=== PATIENT | male | born 1955 | race Caucasian/White ===

== ENCOUNTER 2020-03-06 17:43 | Emergency (ER) | payer OTHER, MEDICAID ==
[~2020-03-06] VITALS: Ht 170.2 cm; Wt 81.6 kg
--- NOTE | 2020-03-06 18:00 | NUR ---
Patient to ER bed 5 to gown for evaluation. Side rails up.
[2020-03-06 18:02] VITALS: BP_SYST 137
[2020-03-06] MEDS ORDERED: NACL 0.9% 1,000 ML IV ONE (18:05)
--- NOTE | 2020-03-06 18:05 | NUR ---
Pt came to ER for L flank pain, difficulty urinating, rates pain 9/10. Pt resting in [facility], no distress at this time, awaiting MD.
[2020-03-06] MEDS ORDERED: KETOROLAC TROMETHAMINE 30 MG VIAL IVP ONE (18:15)
--- NOTE | 2020-03-06 18:15 | NUR ---
ER at bedside examining patient.
[2020-03-06 18:50] LABS: BILIRUBIN,URINE NEGATIVE (NEGATIVE); BLOOD, URINE 1+ (NEGATIVE); COLOR,URINE YELLOW (YELLOW); GLUCOSE,URINE NEGATIVE (NEGATIVE); KETONES,URINE TRACE (NEGATIVE); LEUKOCYTE ESTERASE ,URINE 1+ (NEGATIVE); NITRITE, URINE NEGATIVE (NEGATIVE); PROTEIN URINE 1+ (NEGATIVE)
[2020-03-06 18:53] LABS: BASOPHILS % (AUTO) 0.5 % (0.0-2.0); EOSINOPHILS # (AUTO) 0.1 K/uL (0.0-0.4); EOSINOPHILS % (AUTO) 0.8 % (0.0-4.0); HEMATOCRIT 39.9 % (36-54); HEMOGLOBIN 13.6 g/dL (14.0-18.0); LYMPHOCYTES # (AUTO) 1.1 K/uL (1.0-5.5); LYMPHOCYTES % (AUTO) 10.8 % (20.5-51.5); MEAN CORPUSCULAR HEMOGLOBIN 32 pg (27-31); MEAN CORPUSCULAR HGB CONC 34 % (32-36); MEAN CORPUSCULAR VOLUME 95 fL (79.0-98.0); MONOCYTES % (AUTO) 9.8 % (1.7-9.3); NEUTROPHILS # (AUTO) 7.8 K/uL (1.8-7.7); NEUTROPHILS % (AUTO) 78.1 % (40.0-70.0); PLATELET COUNT (AUTO) 196 K/uL (130-430); RED BLOOD CELL COUNT(AUTO) 4.21 MIL/uL (4.2-6.2); RED CELL DISTRIBUTION WIDTH 13.8 % (9.0-15.0)
[2020-03-06 19:02] LABS: CLARITY/URINE HAZY (CLEAR)
--- NOTE | 2020-03-06 19:13 | NUR ---
REPORT FROM ANA PENA
[2020-03-06 19:21] LABS: BACTERIA,URINE MODERATE /HPF (None Seen)
[2020-03-06] MEDS ORDERED: NEU300 PO (19:21)
[2020-03-06] MEDS ORDERED: SITA100T11 PO (19:21)
[2020-03-06 19:22] LABS: MUCUS,URINE 2+ /LPF (None Seen)
[2020-03-06] MEDS ORDERED: GLIP10TA11 PO (19:23)
[2020-03-06] MEDS ORDERED: CIPR250T4 PO (19:23)
[2020-03-06] MEDS ORDERED: SIMV20TA2 PO (19:23)
--- NOTE | 2020-03-06 19:23 | NUR ---
Medication reconciliation completed with information provided by PATIENT'S BOTTLES. Any prior medication reconciliation on file was reviewed and corrected.
[2020-03-06 19:25] LABS: CALCIUM 8.5 mg/dL (8.4-11.0); CREATININE 0.67 mg/dL (0.55-1.30)
[2020-03-06 19:32] LABS: TOTAL BILIRUBIN 0.4 mg/dL (0.0-1.0)
[2020-03-06] MEDS ORDERED: POTASSIUM CHLORIDE 20 MEQ TAB.PRT.SR PO ONE (20:00)
[2020-03-06 20:33] VITALS: BP_SYST 128
--- NOTE | 2020-03-06 20:33 | NUR ---
Patient given written and verbal discharge instructions and verbalizes understanding. ER MD discussed with patient the results and treatment provided. Patient in stable condition. ID arm band removed. IV catheter removed intact and dressing applied, no active bleeding. Rx of Motrin, Tramadol and Flomax given. Patient educated on pain management and to follow up with PMD. Pain Scale 0/10 Opportunity for questions provided and answered. Medication side effect fact sheet provided.
== END 2020-03-06 20:33 | disposition home or self-care (01) ==
LOC: SED 17:43
DX: N20.0 Calculus of kidney (principal); N39.0 Urinary tract infection, site not specified; R03.0 Elevated blood-pressure reading, without diagnosis of hypertension; E11.40 Type 2 diabetes mellitus with diabetic neuropathy, unspecified; E78.00 Pure hypercholesterolemia, unspecified; Z79.899 Other long term (current) drug therapy
CPT/HCPCS: 36415; 74176; 80053; 81000; 85025; 87086; 96361; 96374; 99284; J1885; J7030

== ENCOUNTER 2020-04-08 18:53 | Inpatient (IN) | payer OTHER, MEDICAID, SELFPAY ==
[~2020-04-08] VITALS: Ht 167.6 cm; Wt 78.0 kg
[~2020-04-08 18:53] MED LIST: CIPR250T4 PO; GLIP10TA11 PO; NEU300 PO; SIMV20TA2 PO; SITA100T11 PO
[2020-04-08 19:15] VITALS: BP_SYST 138
--- NOTE | 2020-04-08 19:19 | NUR ---
Patient to ER bed 5 to gown for evaluation. Side rails up. Report given to Malou PEREZ.
--- NOTE | 2020-04-08 19:30 | NUR ---
ER DR. THOMSON AT THE BEDSIDE EVALUATING PT
--- NOTE | 2020-04-08 19:35 | NUR ---
PT ABLE TO VOID, PROVIDED WITH SPECIMEN CUP. SPECIMEN SENT TO LAB
--- NOTE | 2020-04-08 19:37 | NUR ---
BD PT PRESENTS FROM HOME WITH C/O GROIN PAIN X 1 DAY, DYSURIA AND PAIN WITH URINATION AND RIGHT LOWER BACK PAIN 8/10. PT IS ABLE TO AMBULATE, DENIES ABD PAIN, N/V. AAOX4, V/S STABLE.
[2020-04-08] MEDS ORDERED: KETOROLAC TROMETHAMINE 30 MG VIAL IVP ONE (19:45)
[2020-04-08] MEDS ORDERED: NACL 0.9% 1,000 ML IV ONE (19:45)
--- NOTE | 2020-04-08 19:50 | NUR ---
# 20 gauge angiocath placed to RFA. Use of asceptic technique. Opsite placed over site. Blood return noted. Blood for lab drawn from site. Flushed with 10 cc of normal saline. No evidence of infiltration noted. Patient tolerated well.
[2020-04-08 20:02] LABS: BILIRUBIN,URINE NEGATIVE (NEGATIVE); CLARITY/URINE CLEAR (CLEAR); COLOR,URINE YELLOW (YELLOW); GLUCOSE,URINE NEGATIVE (NEGATIVE); KETONES,URINE NEGATIVE (NEGATIVE); LEUKOCYTE ESTERASE ,URINE 1+ (NEGATIVE); NITRITE, URINE NEGATIVE (NEGATIVE); PROTEIN URINE NEGATIVE (NEGATIVE)
[2020-04-08 20:03] LABS: BASOPHILS # (AUTO) 0.1 K/uL (0.0-0.2); BASOPHILS % (AUTO) 0.4 % (0.0-2.0); EOSINOPHILS # (AUTO) 0.3 K/uL (0.0-0.4); HEMATOCRIT 39.3 % (36-54); HEMOGLOBIN 13.2 g/dL (14.0-18.0); LYMPHOCYTES # (AUTO) 1.7 K/uL (1.0-5.5); LYMPHOCYTES % (AUTO) 12.7 % (20.5-51.5); MEAN CORPUSCULAR HEMOGLOBIN 32 pg (27-31); MEAN CORPUSCULAR HGB CONC 34 % (32-36); MEAN CORPUSCULAR VOLUME 95 fL (79.0-98.0); MONOCYTES # (AUTO) 0.5 K/uL (0.0-1.0); MONOCYTES % (AUTO) 3.5 % (1.7-9.3); NEUTROPHILS # (AUTO) 10.8 K/uL (1.8-7.7); NEUTROPHILS % (AUTO) 81.4 % (40.0-70.0); PLATELET COUNT (AUTO) 218 K/uL (130-430); RED BLOOD CELL COUNT(AUTO) 4.14 MIL/uL (4.2-6.2); RED CELL DISTRIBUTION WIDTH 13.5 % (9.0-15.0); WHITE BLOOD COUNT (AUTO) 13.3 K/uL (4.8-10.8)
[2020-04-08 20:04] LABS: BLOOD, URINE TRACE (NEGATIVE)
[2020-04-08 20:17] LABS: CREATININE 0.66 mg/dL (0.55-1.30); POTASSIUM 3.3 mmol/L (3.5-5.1)
--- NOTE | 2020-04-08 20:20 | NUR ---
COVID SWAB DONE AND SENT TO LAB
[2020-04-08 20:23] LABS: ALBUMIN 3.4 g/dL (3.4-4.8); TOTAL BILIRUBIN 0.5 mg/dL (0.0-1.0)
--- NOTE | 2020-04-08 20:25 | NUR ---
US AT THE BEDSIDE
[2020-04-08 20:30] LABS: RBC,URINE 0-3 /HPF (0-3)
[2020-04-08 20:31] LABS: BACTERIA,URINE MODERATE /HPF (None Seen); TRICHOMONAS,URINE None Seen /HPF (None Seen); WBC,URINE 20-50 /HPF (0-3); YEAST,URINE None Seen /HPF (None Seen)
[2020-04-08 20:32] LABS: MUCUS,URINE None Seen /LPF (None Seen)
[2020-04-08] MEDS ORDERED: MUPIROCIN 2% TOPICAL OINTMENT 22 GM NS PRN (21:00)
[2020-04-08] MEDS ORDERED: ONDANSETRON HCL 4 MG/2 ML VIAL IVP PRN (21:00)
[2020-04-08] MEDS ORDERED: LORazepam 2 MG/ML VIAL IVP PRN (21:00)
[2020-04-08] MEDS ORDERED: cefTRIAXone 1 GM IVPB PREMIX 50 ML IV ONE (21:00)
[2020-04-08] MEDS ORDERED: POTASSIUM CHLORIDE 20 MEQ TAB.PRT.SR PO PRN (21:00)
[2020-04-08] MEDS ORDERED: MAGNESIUM SULFATE 50 ML IV PRN (21:00)
[2020-04-08] MEDS ORDERED: INSULIN LISPRO SLIDING SCALE 100 UNITS/ML VIAL (humaLOG) SUBCUT PRN (21:00)
[2020-04-08] MEDS ORDERED: PIPERACILLIN/TAZO 3.375 GM in NS 50 ML IV ONE (21:00)
[2020-04-08] MEDS ORDERED: MORPHINE 2 MG/ML INJ. SYRINGE IVP PRN ×2 (21:00)
[2020-04-08] MEDS ORDERED: ACETAMINOPHEN 325 MG TABLET PO PRN (21:00)
[2020-04-08] MEDS ORDERED: ZOLPIDEM TARTRATE 5 MG TABLET PO PRN (21:00)
[2020-04-08] MEDS ORDERED: DOCUSATE SODIUM 100 MG CAPSULE PO PRN (21:00)
[2020-04-08] MEDS ORDERED: DEXTROSE 50% JECT 50 ML DISP.SYRIN IVP PRN (21:00)
--- NOTE | 2020-04-08 21:00 | NUR ---
ADMIT ORDERS RECEIVED FROM DR. EMERSON.
--- NOTE | 2020-04-08 21:19 | NUR ---
Patient will be admitted to care of DR. EMERSON. Admitted to MS unit. Will go to room 111B. Belongings list completed. Complete and up to date summary report printed. SBAR report to be given at bedside with opportunity for questions.
[2020-04-08] MEDS ORDERED: PIPERACILLIN/TAZOBACTAM 3.375 GM/VIAL (ZOSYN) IV ONE ×2 (21:22→22:24)
--- NOTE | 2020-04-08 21:41 | NUR ---
ADMISSION NOTE Received patient from ER via shawanda, received report from ANA Westfall. Patient admitted with diagnosis of testicular abscess. Patient oriented to hospital routine, call light, toileting and safety-patient verbalized understanding.
--- NOTE | 2020-04-08 21:45 | NUR ---
Initial note: Patient arrived to unit via wheelchair, able to transfer to bed independently. No acute distress. Even, unlabored breathing on room air. IV to right AC noted, saline locked. Left scrotal edema noted. Call light with patient. Safety, fall, precautions in place. Will continue with plan of care.
[2020-04-08 21:51] VITALS: BP_SYST 135
[2020-04-08] MEDS: GABAPENTIN 300 MG CAPSULE PO SCH (22:17)
[2020-04-08] MEDS: SIMVASTATIN 20 MG TABLET PO SCH (22:17)
[2020-04-08] MEDS: NACL 0.9% 1,000 ML IV SCH (22:17)
[2020-04-08] MEDS ORDERED: cefTRIAXone 1 GM VIAL ONE (22:24)
[2020-04-09] VITALS: BP_SYST 126
--- NOTE | 2020-04-09 00:20 | NUR ---
Rounds: Patient is resting in bed, does not show any acute distress. Respirations are even, unlabored on room air. IV fluids infusing per MD order, no infiltration noted. Call light is with patient. Will continue to monitor.
[2020-04-09] MEDS: PIPERACILLIN/TAZO 3.375 GM in NS 50 ML IV SCH ×2 (02:14→09:11)
--- NOTE | 2020-04-09 03:34 | NUR ---
Rounds: Patient is asleep. No acute distress. Respirations are even and unlabored on room air. IV fluids infusing well, no infiltration. Call light with patient. Will continue to monitor.
--- NOTE | 2020-04-09 06:06 | NUR ---
Closing note: Patient is resting comfortably in bed. No acute distress. Even, unlabored breathing. Tolerating room air. IV fluids infusing well. IV site benign and intact. All needs met. Safety, fall precautions observed. Will endorse care to dayshift RN.
[2020-04-09 06:24] LABS: BASOPHILS % (AUTO) 0.3 % (0.0-2.0); EOSINOPHILS # (AUTO) 0.3 K/uL (0.0-0.4); EOSINOPHILS % (AUTO) 2.5 % (0.0-4.0); HEMATOCRIT 36.9 % (36-54); HEMOGLOBIN 12.5 g/dL (14.0-18.0); LYMPHOCYTES # (AUTO) 1.8 K/uL (1.0-5.5); LYMPHOCYTES % (AUTO) 17.5 % (20.5-51.5); MEAN CORPUSCULAR HEMOGLOBIN 32 pg (27-31); MEAN CORPUSCULAR HGB CONC 34 % (32-36); MEAN CORPUSCULAR VOLUME 94 fL (79.0-98.0); MONOCYTES # (AUTO) 0.5 K/uL (0.0-1.0); MONOCYTES % (AUTO) 4.9 % (1.7-9.3); NEUTROPHILS # (AUTO) 7.5 K/uL (1.8-7.7); NEUTROPHILS % (AUTO) 74.8 % (40.0-70.0); PLATELET COUNT (AUTO) 203 K/uL (130-430); RED BLOOD CELL COUNT(AUTO) 3.91 MIL/uL (4.2-6.2); RED CELL DISTRIBUTION WIDTH 13.8 % (9.0-15.0)
--- NOTE | 2020-04-09 07:15 | NUR ---
opening note received bedside sbar to night RN, patient in bed, respirations even, non labored, bed in low and locked position,
[2020-04-09 07:24] LABS: CALCIUM 7.9 mg/dL (8.4-11.0); CREATININE 0.68 mg/dL (0.55-1.30); POTASSIUM 3.8 mmol/L (3.5-5.1)
--- NOTE | 2020-04-09 07:45 | NUR ---
md rounds Dr. Valdes bedside examining patient,
[2020-04-09 08:00] VITALS: BP_SYST 149
--- NOTE | 2020-04-09 08:00 | NUR ---
nurse notes obtained vs, patient in bed, respirations even, non labored, bed in low and locked position, call light within reach, IVF's running as ordered,
--- NOTE | 2020-04-09 08:06 | NUR ---
CONSULTATION PAGED/CALLED Reason for Consultation: BRANDYN ROCK Person Who was Notified: LYN Consulting Physician: MINDI Mate Ship Specialty: ID Ordering Physician: KI
--- NOTE | 2020-04-09 08:41 | NUR ---
CONSULTATION PAGED/CALLED Reason for Consultation: TESTICULAR ABCESS Person Who was Notified: CAMRON Consulting Physician: JAD FINLEY Floor Care Technician Specialty: Ordering Physician: KI
[2020-04-09] MEDS: GABAPENTIN 300 MG CAPSULE PO SCH ×3 (08:50→22:04)
[2020-04-09] MEDS: ENOXAPARIN SODIUM 40 MG/0.4 ML SYRINGE SUBCUT SCH (08:55)
--- NOTE | 2020-04-09 10:00 | NUR ---
nurse note patient in bed, respirations even, non labored bed in low and locked postion call light within reach, denies any pain or discomfort
--- NOTE | 2020-04-09 11:45 | NUR ---
NURSE NOTE OBTAINED BS. PATIENT IN BED, RESPIRATIONS EVEN, NON LABORED, BED IN LOW AND LOCKED POSITION, CALL LIGHT WITHIN REACH, EDUCATED PATIENT REGARDING THE USE OF A SLING TO BE USED FOR SCROTUM, PATIENT VERBALIZED UNDERSTANDING NO QUESTIONS ASKED
[2020-04-09 12:00] VITALS: BP_SYST 128
[2020-04-09] MEDS: NACL 0.9% 1,000 ML IV SCH ×2 (12:12→23:23)
--- NOTE | 2020-04-09 13:14 | NUR ---
NURSE NOTE PATIENT IN BED RESPIRATIONS EVEN, NON LABORED, BED IN LOW AND LOCKED POSITION, CALL LIGHT WITHIN REACH, DENIES ANY PAIN OR DISCOMFORT
--- NOTE | 2020-04-09 15:45 | NUR ---
nurse note obtained BS, no coverage needed, patient denies any pain or discomfort, bed in low and locked position, call light within reach
[2020-04-09 16:00] VITALS: BP_SYST 141
[2020-04-09] MEDS: cefOXitin SODIUM 2 GM in D5W 100 ML IV SCH ×2 (16:21→22:04)
--- NOTE | 2020-04-09 18:00 | NUR ---
nurse note patient in bed, respirations even, non labored, bed in low and locked position, call light within reach, bed alarm on, iVF's running as ordered, patient denies any pain or discomfort
--- NOTE | 2020-04-09 19:15 | NUR ---
Closing note Provided sbar to night RN, patient in bed, respirations even, non labored, bed in low and locked position, call light within reach, endorsed care to night RN
--- NOTE | 2020-04-09 19:30 | NUR ---
OPENING NOTES: Received report from dayshift nurse, pt is resting in bed with no s/s of distress or discomfort. He is on room air with symmetric chest expansion and unlabored breathing. IV noted on LAC with dry dressing. Patient has urinal at bedside. He does not have any concerns at this time.
[2020-04-09 20:00] VITALS: BP_SYST 133
--- NOTE | 2020-04-09 22:00 | NUR ---
MEDICATION ADMINISTRATION: Patient is resting in bed. Vital signs were within normal limits. Accucheck done and insulin administered per sliding scale. Administered all meds as ordered by MD, pt tolerated well. Educated patient about Neurontin and it's side effects. He verbalized understanding and does not have any concerns at this time. Ensured all safety precautions. Bed is locked and in the lowest position, call light within reach. Will continue to monitor patient.
[2020-04-09] MEDS: DOXYCYCLINE HYCLATE 100 MG CAPSULE PO SCH (22:04)
[2020-04-09] MEDS: SIMVASTATIN 20 MG TABLET PO SCH (22:04)
--- NOTE | 2020-04-10 | NUR ---
RN ROUNDS: Patient is laying in bed with no s/s of distress or discomfort. Will continue to monitor patient.
[2020-04-10 00:44] VITALS: BP_SYST 121
--- NOTE | 2020-04-10 02:00 | NUR ---
RN ROUNDS: Patient is laying in bed, appears to be asleep. He is in stable condition. Bed is in the lowest position and call light within reach. Will continue to monitor.
--- NOTE | 2020-04-10 04:00 | NUR ---
RN ROUNDS: Patient is laying in bed and continues to be asleep. He is not exhibiting any s/s of distress or discomfort. Bed is in the lowest position and call light within reach. Will continue to monitor.
[2020-04-10] MEDS: cefOXitin SODIUM 2 GM in D5W 100 ML IV SCH ×3 (06:05→21:01)
[2020-04-10 06:49] LABS: BASOPHILS % (AUTO) 0.3 % (0.0-2.0); EOSINOPHILS # (AUTO) 0.2 K/uL (0.0-0.4); EOSINOPHILS % (AUTO) 2.1 % (0.0-4.0); HEMATOCRIT 38.4 % (36-54); HEMOGLOBIN 12.9 g/dL (14.0-18.0); LYMPHOCYTES # (AUTO) 1.6 K/uL (1.0-5.5); LYMPHOCYTES % (AUTO) 14.6 % (20.5-51.5); MEAN CORPUSCULAR HEMOGLOBIN 32 pg (27-31); MEAN CORPUSCULAR HGB CONC 34 % (32-36); MEAN CORPUSCULAR VOLUME 94 fL (79.0-98.0); MONOCYTES # (AUTO) 0.5 K/uL (0.0-1.0); MONOCYTES % (AUTO) 4.3 % (1.7-9.3); NEUTROPHILS # (AUTO) 8.8 K/uL (1.8-7.7); NEUTROPHILS % (AUTO) 78.7 % (40.0-70.0); PLATELET COUNT (AUTO) 227 K/uL (130-430); RED BLOOD CELL COUNT(AUTO) 4.08 MIL/uL (4.2-6.2); RED CELL DISTRIBUTION WIDTH 13.6 % (9.0-15.0); WHITE BLOOD COUNT (AUTO) 11.2 K/uL (4.8-10.8)
[2020-04-10 07:00] LABS: CALCIUM 8.3 mg/dL (8.4-11.0); CREATININE 0.59 mg/dL (0.55-1.30); POTASSIUM 3.7 mmol/L (3.5-5.1)
--- NOTE | 2020-04-10 07:01 | NUR ---
CLOSING NOTES: Patient is resting in bed with no s/s of distress or discomfort. He is in stable condition. IV on RAC with dry dressing, patent and intact. Patient has urinal at bedside. He does not have any concerns at this time. All needs were met throughout shift. Will endorse to dayshift nurse.
[2020-04-10 08:00] VITALS: BP_SYST 145
--- NOTE | 2020-04-10 08:00 | NUR ---
initial notes rec patient awake alert with ivf infusing well on the rt ac. no infiltration noted. resp easy and unlabored. no sob noted. bed to the lowest position and side rails up and locked. call light within reached. scrotal area less swollen.
--- NOTE | 2020-04-10 10:00 | NUR ---
rounds due meds given and michael well. call light within reached.
--- NOTE | 2020-04-10 10:02 | NUR ---
Nutrition Update Rohan Scale 18 noted. Pt admitted for testicular abscess. Diet: [facility] BMI: 27.8 kg/m2 RD to follow per nutrition care standards.
[2020-04-10] MEDS: DOXYCYCLINE HYCLATE 100 MG CAPSULE PO SCH ×2 (10:10→20:54)
[2020-04-10] MEDS: GABAPENTIN 300 MG CAPSULE PO SCH ×3 (10:10→20:54)
[2020-04-10] MEDS: ENOXAPARIN SODIUM 40 MG/0.4 ML SYRINGE SUBCUT SCH (10:11)
[2020-04-10] MEDS: NACL 0.9% 1,000 ML IV SCH ×2 (10:30→23:12)
[2020-04-10 12:18] VITALS: BP_SYST 141
--- NOTE | 2020-04-10 13:00 | NUR ---
rounds no hypo hyperglycemic reaction noted. call light within reached. seen by dr kebede
--- NOTE | 2020-04-10 16:00 | NUR ---
rounds resting comfortably , call light within reached. watching tv at intervals.
[2020-04-10 16:18] VITALS: BP_SYST 127
--- NOTE | 2020-04-10 18:30 | NUR ---
closing notes no hypo hyperglycemic reaction noted. call light within reached . bed to the lowest position and side rail up and locked.
--- NOTE | 2020-04-10 19:15 | NUR ---
OPENING NOTE: RECEIVED SBAR REPORT FROM DAY SHIFT RN. PATIENT IS IS AWAKE, ALERT AND ORIENTED X 4. BREATHING UNLABORED AND EVEN ON RA. NO S/S ACUTE DISTRESS NOTED. USING URINAL. IV NOTED AT R AC. FLUID INFUSING AT 80 ML/HR. NO SIGN OF INFILTRATION NOTED. BED LOCKED AND IS IN THE LOWEST POSITION, BED ALARM ON. CALL LIGHT IS WITH PATIENT. WILL CONTINUE TO MONITOR.
[2020-04-10 20:00] VITALS: BP_SYST 120
[2020-04-10] MEDS: SIMVASTATIN 20 MG TABLET PO SCH (20:54)
--- NOTE | 2020-04-10 21:00 | NUR ---
MEDICATION PASS: PATIENT GIVEN SCHEDULED MEDICATIONS. TOLERATED TAKING PO MEDS WELL. BG MEASURED 130 MG/dL. PATIENT EDUCATED REGARDING S/S OF HYPERGLYCEMIA. IV DRESSING CHANGED. NO SIGN OF INFILTRATION NOTED. SAFETY AND FALL PRECAUTIONS ARE IN PLACE. CALL LIGHT IS WITH PATIENT. WILL CONTINUE TO MONITOR.
--- NOTE | 2020-04-10 23:15 | NUR ---
RN ROUNDS: PATIENT IS IN BED, CURRENTLY SLEEPING. BREATHING IS EVEN AND UNLABORED. NO S/S ACUTE DISTRESS NOTED. IVF INFUSING AT ORDERED RATE. BED IS IN LOWEST POSITION, AND IS LOCKED. CALL LIGHT IS WITH PATIENT. WILL CONTINUE TO MONITOR.
[2020-04-11] VITALS: BP_SYST 132
--- NOTE | 2020-04-11 02:55 | NUR ---
RN ROUNDS: PATIENT ASLEEP. RESPIRATION IS EVEN AND UNLABORED. IVF INFUSING AT 80 ML/HR. BED IS LOCKED AND IN LOWEST POSITION. CALL LIGHT IS WITH PATIENT. WILL CONTINUE TO MONITOR.
--- NOTE | 2020-04-11 04:52 | NUR ---
RN ROUNDS: PATIENT IS SLEEPING. RESPIRATION IS EVEN AND UNLABORED. IVF INFUSING AT 80 ML/HR. NO SIGN OF INFILTRATION NOTED. SAFETY AND FALL PRECAUTIONS ARE IN PLACE. CALL LIGHT IS WITH PATIENT. WILL MONITOR PATIENT FOR NAY CHANGES.
[2020-04-11] MEDS: cefOXitin SODIUM 2 GM in D5W 100 ML IV SCH ×3 (05:49→21:11)
--- NOTE | 2020-04-11 06:13 | NUR ---
CLOSING NOTE: PATIENT GIVEN SCHEDULED MORNING PO MED. TOLERATED WELL. BG MEASURED AT 92 MG/dL. NO ACTION REQUIRED. IVF INFUSING ORDERED RATE. NO SIGN OF INFILTRATION NOTED. IV DRESSING IS INTACT AND DRY. RESPIRATION IS EVEN AND UNLABORED. NO S/S ACUTE DISTRESS NOTED. BED IS IN LOWEST POSITION AND LOCKED. CALL LIGHT IS WITH PATIENT. CALL LIGHT IS WITH PATIENT.ALL NEEDS MET. WILL ENDORSE PATIENT'S PLAN OF CARE TO DAY SHIFT RN.
[2020-04-11 06:38] LABS: BASOPHILS % (AUTO) 0.3 % (0.0-2.0); EOSINOPHILS # (AUTO) 0.2 K/uL (0.0-0.4); EOSINOPHILS % (AUTO) 2.1 % (0.0-4.0); HEMATOCRIT 38.4 % (36-54); LYMPHOCYTES # (AUTO) 1.8 K/uL (1.0-5.5); LYMPHOCYTES % (AUTO) 17.2 % (20.5-51.5); MEAN CORPUSCULAR HEMOGLOBIN 32 pg (27-31); MEAN CORPUSCULAR HGB CONC 34 % (32-36); MEAN CORPUSCULAR VOLUME 94 fL (79.0-98.0); MONOCYTES # (AUTO) 0.5 K/uL (0.0-1.0); MONOCYTES % (AUTO) 4.5 % (1.7-9.3); NEUTROPHILS # (AUTO) 7.9 K/uL (1.8-7.7); NEUTROPHILS % (AUTO) 75.9 % (40.0-70.0); PLATELET COUNT (AUTO) 225 K/uL (130-430); RED BLOOD CELL COUNT(AUTO) 4.08 MIL/uL (4.2-6.2); RED CELL DISTRIBUTION WIDTH 13.8 % (9.0-15.0); WHITE BLOOD COUNT (AUTO) 10.4 K/uL (4.8-10.8)
[2020-04-11 06:48] LABS: CALCIUM 8.4 mg/dL (8.4-11.0); CREATININE 0.81 mg/dL (0.55-1.30); POTASSIUM 4.1 mmol/L (3.5-5.1)
[2020-04-11 08:00] VITALS: BP_SYST 129
--- NOTE | 2020-04-11 08:00 | NUR ---
initial notes rec patient awake alert with ivf infusing well on the r ac. no infiltration noted. resp easy and unlabored, no sob noted. bed to the lowest position and side rails up and locked. call light within reached. scrotal swelling is less, denies pain. will continue to monitor patient.
[2020-04-11] MEDS: GABAPENTIN 300 MG CAPSULE PO SCH ×3 (10:13→21:11)
[2020-04-11] MEDS: DOXYCYCLINE HYCLATE 100 MG CAPSULE PO SCH ×2 (10:13→21:11)
[2020-04-11] MEDS: ENOXAPARIN SODIUM 40 MG/0.4 ML SYRINGE SUBCUT SCH (10:14)
--- NOTE | 2020-04-11 10:30 | NUR ---
rounds due meds were given and michael well. scrotal support provided to patient. call light within reached.
[2020-04-11] MEDS: NACL 0.9% 1,000 ML IV SCH ×2 (12:11→12:13)
[2020-04-11 12:19] VITALS: BP_SYST 145
--- NOTE | 2020-04-11 12:30 | NUR ---
rounds no hypo hyperglycemic reaction noted. bed to the lowest position. call light within reached.
--- NOTE | 2020-04-11 14:00 | NUR ---
rounds watching tv , denies pain. no sob noted.
[2020-04-11 16:17] VITALS: BP_SYST 133
--- NOTE | 2020-04-11 18:45 | NUR ---
closing notes no hypo hyperglycemic reaction noted. denies pain. bed to the lowest positiona nd side rails up and locked. call light within reached.
--- NOTE | 2020-04-11 19:35 | NUR ---
ROUNDS PATIENT IN BED, WATCHING TV, DENIES ANY PAIN AND DISCOMFORT AT THIS TIME. ASSESSMENT DONE AND DOCUMENTED. SEE FLOWSHEET. NEEDS ATTENDED TO. SAFETY MEASURES IN PLACED. BED IN LOW AND LOCKED POSITION. CALL LIGHT PLACED WITHIN REACH.
[2020-04-11 20:00] VITALS: BP_SYST 142
[2020-04-11] MEDS: SIMVASTATIN 20 MG TABLET PO SCH (21:11)
--- NOTE | 2020-04-11 21:16 | NUR ---
MEDICATIONS DUE MEDICATIONS GIVEN SCHEDULED, TOLERATED WELL. WILL CONTINUE TO MONITOR.
[2020-04-12] VITALS: BP_SYST 135
--- NOTE | 2020-04-12 00:16 | NUR ---
ROUNDS PATIENT ASLEEP, VITALS STABLE, NO SOB NOR PAIN AND DISCOMFORT NOTED. WILL CONTINUE TO MONITOR.
[2020-04-12 02:06] LABS: CHLAMYDIA TRACHOMATIS NAA Negative (Negative); NEISSERIA GONORRHOEAE NAA Negative (Negative)
--- NOTE | 2020-04-12 02:13 | NUR ---
ROUNDS PATIENT ASLEEP, NO SOB NOR PAIN AND DISCOMFORT NOTED, RESPIRATIONS EVEN AND UNLABORED. WILL CONTINUE TO MONITOR.
--- NOTE | 2020-04-12 04:16 | NUR ---
ROUNDS PATIENT SLEEPING, NO SOB NOR PAIN AND DISCOMFORT NOTED, WILL CONTINUE TO MONITOR.
[2020-04-12] MEDS: NACL 0.9% 1,000 ML IV SCH ×2 (05:07)
[2020-04-12] MEDS: cefOXitin SODIUM 2 GM in D5W 100 ML IV SCH (05:08)
[2020-04-12 06:21] LABS: CALCIUM 8.6 mg/dL (8.4-11.0); CREATININE 0.88 mg/dL (0.55-1.30); POTASSIUM 3.9 mmol/L (3.5-5.1)
[2020-04-12 06:39] LABS: BASOPHILS # (AUTO) 0.1 K/uL (0.0-0.2); BASOPHILS % (AUTO) 0.6 % (0.0-2.0); EOSINOPHILS # (AUTO) 0.3 K/uL (0.0-0.4); EOSINOPHILS % (AUTO) 2.9 % (0.0-4.0); HEMATOCRIT 40.6 % (36-54); HEMOGLOBIN 13.8 g/dL (14.0-18.0); LYMPHOCYTES # (AUTO) 1.4 K/uL (1.0-5.5); LYMPHOCYTES % (AUTO) 14.9 % (20.5-51.5); MEAN CORPUSCULAR HEMOGLOBIN 32 pg (27-31); MEAN CORPUSCULAR HGB CONC 34 % (32-36); MEAN CORPUSCULAR VOLUME 93 fL (79.0-98.0); MONOCYTES # (AUTO) 0.3 K/uL (0.0-1.0); MONOCYTES % (AUTO) 3.6 % (1.7-9.3); NEUTROPHILS # (AUTO) 7.3 K/uL (1.8-7.7); PLATELET COUNT (AUTO) 231 K/uL (130-430); RED BLOOD CELL COUNT(AUTO) 4.34 MIL/uL (4.2-6.2); RED CELL DISTRIBUTION WIDTH 13.6 % (9.0-15.0); WHITE BLOOD COUNT (AUTO) 9.3 K/uL (4.8-10.8)
--- NOTE | 2020-04-12 06:55 | NUR ---
CLOSING NOTES PATIENT RESTING IN BED, NO COMPLAINTS AT THIS TIME, VITALS STABLE. ALL NEEDS ATTENDED TO. SAFETY MEASURES MAINTAINED. CALL LIGHT PLACED WITHIN REACH.
--- NOTE | 2020-04-12 07:30 | NUR ---
OPENING NOTES PT AWAKE, ALERT, AND ORIENTED. NONLABORED BREATHING NOTED ON ROOM AIR. PT DENIES PAIN AND SOB AT THIS TIME. IV LINE INTACT AND PATENT, NO SIGNS OF INFILTRATION NOTED, FLUIDS RUNNING ORDERED. NO ACUTE DISTRESS NOTED. ALL NEEDS MET. CALL LIGHT IN REACH. FALL AND ASPIRATION PRECAUTIONS IN PLACE. CONTINUE TO MONITOR.
[2020-04-12 08:00] VITALS: BP_SYST 143
[2020-04-12] MEDS ORDERED: DOXY100T2 PO (08:12)
[2020-04-12] MEDS ORDERED: CEPH-568 PO (08:12)
[2020-04-12] MEDS: GABAPENTIN 300 MG CAPSULE PO SCH (08:54)
[2020-04-12] MEDS: DOXYCYCLINE HYCLATE 100 MG CAPSULE PO SCH (08:54)
[2020-04-12] MEDS: ENOXAPARIN SODIUM 40 MG/0.4 ML SYRINGE SUBCUT SCH (08:55)
--- NOTE | 2020-04-12 08:58 | NUR ---
routine meds administered as ordered per md, education given, tolerated well. continue to monitor.
[2020-04-12 10:12] VITALS: BP_SYST 143
--- NOTE | 2020-04-12 11:50 | NUR ---
accuchecks FIRST ACCUCHECK WAS 50, PT DENIES SIGNS AND SYMPTOMS OF HYPOGLYCEMIA. GIVEN ORANGE JUICE AND SNACKS. CHECKED PT'S BS ONCE MORE, ACCUCHECK AT 60. DEXTROSE GIVEN <60. PT'S RIDE AWAITING OUTSIDE. READY FOR D/C Addendum: 04/12/20 at 1156 by Ashly Lakhani RN UPON ASSESSMENT, NO S/S OF HYPOGLYCEMIA. PT AWAKE AND ALERT.
[2020-04-12 12:00] VITALS: BP_SYST 138
== END 2020-04-12 11:50 | disposition home or self-care (01) | DRG 728 ==
LOC: SED 18:53 → SMU 21:02
PROVIDERS: ADMIT General Practice; ATTEND General Practice
DX: N45.3 Epididymo-orchitis (principal); N39.0 Urinary tract infection, site not specified; N45.4 Abscess of epididymis or testis; N43.3 Hydrocele, unspecified; N45.1 Epididymitis; E11.40 Type 2 diabetes mellitus with diabetic neuropathy, unspecified; E78.5 Hyperlipidemia, unspecified; E87.6 Hypokalemia; F17.200 Nicotine dependence, unspecified, uncomplicated; Z20.828 Contact with and (suspected) exposure to other viral communicable diseases; Z79.899 Other long term (current) drug therapy; Z90.49 Acquired absence of other specified parts of digestive tract
CPT/HCPCS: 36415; 76870-TC; 80048; 80053; 81000-TC; 82962; 83036; 83735-TC; 85025; 87040-TC; 87086; 87491; 87591; 96361; 96365; 96375; 99285; J0694; J0696; J1650; J1885; J2543; J7030; J7060